=== PATIENT | male | born 1940 | race Caucasian/White ===

== ENCOUNTER → 2020-02-07 12:30 | Outpatient (CLI) | payer MEDICARE, SELFPAY ==
--- NOTE | ~2020-02-07 | US_ITS ---
EXAMINATION: US scrotum doppler DATE: 02/07/2020 13:39 INDICATION: Right testicular swelling TECHNIQUE: Testicular sonogram utilizing grayscale and Doppler COMPARISON: None. FINDINGS: The right testis measures 4.2 x 2.4 x 3.2 cm. The left testis measures 3.5 x 2.2 x 2.9 cm. There is normal vascular flow to both testes. The right epididymis is normal with normal vascular hebert w. The left epididymis is normal in size and contains cysts or spermatoceles measuring up to 8 mm. Th ere is a large right hydrocele. IMPRESSION: 1. Large right hydrocele. Reviewed, dictated and finalized at location A. IMPRESSION: 1. Large right hydrocele.
--- NOTE | ~2020-02-07 | CT_ITS ---
EXAMINATION: CTA chest DATE: 02/07/2020 13:26 INDICATION: Thoracic aortic aneurysm without rupture TECHNIQUE: Computed tomographic angiography (CTA) of the chest was performed without and with 100 mL Omnipque-350 intravenous contrast. Maximum intensity projection 3D-reconstructions of the aorta and o ther arteries were constructed by the technologist on a separate workstation. The dose-length product (DLP) was 1480.22 mGy-cm. Automated exposure control and iterative reconstruction technique were emp loyed. COMPARISON: 08/25/2018 FINDINGS: There is a fusiform aneurysm of the ascending aorta which measures 5.2 x 4.6 cm at the leve l of the main pulmonary artery, not significantly changed since the prior examination. No dissection is identified. The heart size is normal. There are changes of aortic valve surgery. Calcified coronar y artery atherosclerosis is noted. Chronic centrilobular nodules persist without significant change, consistent with infection/inflammation. A mildly enlarged right lower paratracheal lymph node is stab le. A pacemaker of the left chest wall is again noted. There is a 3.8 x 3.0 cm left adrenal mass whic h has replaced a previously stable 10 mm left adrenal nodule. IMPRESSION: 1. 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 2. Interval development of a left adrenal mass replacing a previously stable left adrenal nodule. Fin dings could reflect development of a left adrenal malignancy. Recommend correlation with laboratory s tudies and biopsy. Reviewed, dictated and finalized at location A. IMPRESSION: 1. 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 2. Interval development of a left adrenal mass replacing a previously stable le ft adrenal nodule. Findings could reflect development of a left adrenal maligna ncy. Recommend correlation with laboratory studies and biopsy.
[2020-02-07 12:55] LABS: Estimated Glomerular Filt Rate > 60
== END ==
PROVIDERS: Visit Provider Internal Medicine
DX: I71.2 Thoracic aortic aneurysm, without rupture (principal); N43.3 Hydrocele, unspecified
CPT/HCPCS: 36415; 71275; 76870; 93976; Q9967

== ENCOUNTER 2020-05-22 09:58 | Emergency (ER) | payer MEDICARE, SELFPAY ==
--- NOTE | ~2020-05-22 | XR_ITS ---
EXAMINATION: XR chest 2V EXAM DATE: 05/22/2020 10:17 INDICATION: Shortness of breath. Wheezing. TECHNIQUE: Frontal and lateral projections of the chest obtained and reviewed. Comparison is made to prior examination from 04/27/2019. FINDINGS: Multilead pacemaker. Sternotomy wires. Cardiac valve replacement. The cardiomediastinal si lhouette is prominent but magnified on this AP technique. Left basilar linear opacities consistent wi th subsegmental atelectasis unchanged. The lungs are otherwise clear. There are no pleural effusions . There is no pneumothorax suspected. The bones and soft tissues are unremarkable. IMPRESSION: Chronic left basilar linear opacities likely atelectasis. Reviewed, dictated and finalized at location B. RATION ENGINEERING TECHNOLOGIST
[2020-05-22 10:05] VITALS: BP 150/76; PULSE 70; RESP 20; TEMP 36.6; O2SAT 96
--- NOTE | 2020-05-22 10:09 | ED.GENADULT ---
HPI - General Adult General Chief complaint: Upper Respiratory Infection Stated complaint: Wheezing Time Seen by Provider: 05/22/20 09:59 Source: patient Mode of arrival: ambulatory Limitations: no limitations History of Present Illness HPI narrative: 79 y/o male. PMH includes: See chart. Presents to clinic today with acute complaints of intermittent wheezing, non-productive cough, and nasal congestion since September ; however, worsening in past few weeks . Pt denies fever, chills, chest pain, dyspnea, abdominal pain, N/V/D. He states to have been using OTC Coricidin BP , with subtherapeutic relief. He denies known ill contacts or Covid 19 exposure. He has declined offer for additional Covid 19 testing at this time. He is a non-smoker. No additional acute c/o upon PE. Related Data Home Medications Medication Instructions Recorded Confirmed albuterol sulfate [Ventolin HFA] INHALATION 05/22/20 allopurinol 05/22/20 amlodipine 05/22/20 atorvastatin 05/22/20 carvedilol 05/22/20 finasteride mg 05/22/20 lisinopril-hydrochlorothiazide tablet 05/22/20 potassium chloride [Klor-Con M20] meq PO 05/22/20 sildenafil 05/22/20 warfarin [Jantoven] 05/22/20 Allergies Allergy/AdvReac Type Severity Reaction Status Date / Time Sulfa (Sulfonamide Allergy Verified 01/11/13 10:14 Antibiotics) Review of Systems Review of Systems: Narrative: CONSTITUTIONAL: Denies fever, chills, sweats. EYES: Denies visual changes, redness, discharge. ENT: Positive rhinorrhea, congestion. No sore throat, otalgia. CARDIOVASCULAR: Denies chest pain, palpitations, edema. RESPIRATORY: Positive cough, wheezing. No dyspnea. GASTROINTESTINAL: Denies abdominal pain, nausea, vomiting, diarrhea. GENITOURINARY: Denies dysuria, hematuria, abnormal discharge SKIN: Denies rash or itching. MUSCULOSKELETAL: Denies acute back pain, joint pain, or myalgia. NEUROLOGIC: Denies numbness, or focal weakness. PSYCHIATRIC: Denies anxiety or depression. All systems reviewed & are unremarkable except as noted in HPI and below Exam Narrative: Exam Narrative: GENERAL: This is a well-nourished, well-developed patient, in no apparent distress. HEAD: normocephalic, atraumatic. EYES: PERRL. Sclera clear/white. Vision is grossly intact. EARS: External ears normal, auditory canals clear and without drainage, TMs normal without perforation. Hearing grossly intact. NOSE: External nose normal with no obvious nasal discharge, nares without redness. Positive rhinorrhea. THROAT: Mucous membranes moist, posterior pharynx clear. NECK: Neck supple, non-tender without lymphadenopathy, masses or thyromegaly. CARDIOVASCULAR: Regular rate and rhythm without murmurs, gallops, or rubs. RESPIRATORY: Clear to auscultation. Breath sounds equal bilaterally. No wheezes, rales, or rhonchi. GASTROINTESTINAL: Abdomen soft, non-tender, nondistended. Bowel sounds are active. No hepato-splenomegaly, or palpable masses. No guarding. SKIN: warm, intact with no suspicious lesions or rash, good texture and turgor. NEURO: awake, alert, and oriented to person, place and time. There were no obvious focal neurologic abnormalities. Steady gait EXTREMITIES: Normal range of motion. No edema. No calf tenderness. Negative Homans sign bilaterally. BACK: Nontender without deformity or crepitance. No flank tenderness. Lidia Coma Scale Eye Opening: Spontaneous 4 Reading Coma Scale Motor: Obeys Commands 6 Reading Coma Scale Verbal: Oriented 5 Const: General: no acute distress Orientation/consciousness: patient oriented x3 Course Vital Signs Vital signs: Vital Signs Temperature 36.6 C 05/22/20 10:05 Pulse Rate 70 05/22/20 10:05 Respiratory Rate 20 05/22/20 10:05 Blood Pressure 150/76 H 05/22/20 10:05 Pulse Oximetry 96 05/22/20 10:05 Temperature 36.6 C 05/22/20 10:05 Pulse Rate 70 05/22/20 10:05 Respiratory Rate 20 05/22/20 10:05 Blood Pressure 150/76 H
== END 2020-05-22 10:49 | disposition home or self-care (01) ==
PROVIDERS: Emergency Provider Nurse Practitioner Adult Health; PCP Internal Medicine
DX: J06.9 Acute upper respiratory infection, unspecified (principal); Z95.0 Presence of cardiac pacemaker
CPT/HCPCS: 71046; 99213; G0463

== ENCOUNTER → 2020-06-08 13:16 | Outpatient (CLI) | payer MEDICARE, SELFPAY ==
--- NOTE | ~2020-06-08 | CT_ITS ---
EXAMINATION: CT chest wo con DATE: 06/08/2020 13:39 INDICATION: Linear left basilar lung opacities on chest x-ray TECHNIQUE: Computed tomography (CT) of the chest was performed without intravenous contrast. Automate d exposure control and iterative reconstruction technique were employed. Exam dose: 444.93 mGy-cm to chelsea exam DLP. COMPARISON: 05/22/2022 view chest 02/07/2020 CTA chest FINDINGS: There are multiple linear discoid opacities in the base of the lingula and left lower lobe, consistent with discoid atelectasis and/or scar. Mild atelectasis or scarring at the base of the middle lobe. There are scattered bilateral areas of increased reticular markings, likely chronic. There are calcified left hilar and subcarinal lymph nodes consistent with old pulmonary granulomatous disease. Stable 11 mm cross-section diameter right paratracheal lymph node. Status post sternotomy and aortic valve replacement.. Heart size is within normal range. No pericardial effusion. The ascending aorta measures up to 4.9 cm transverse dimension. The mid thoracic aortic arch measures up to 2.9 cm diameter. The descending thoracic aorta measures approximately 2.8 cm diameter. No pleural effusion or pneumothorax. Normal morphology of the right adrenal gland. Approximately 3 x 4 cm left adrenal mass with attenuation of 40 Hounsfield units, relatively stable i n size compared to 02/07/2020; consider adrenal malignancy or metastasis. There is loss of height and anterior wedging of multiple thoracic and lumbar vertebrae, with undulati ng vertebral endplates, which may be secondary to Scheuermann's disease. Compression fracture at one or more of these vertebrae is not excluded. IMPRESSION: Prominent discoid atelectasis or scarring at the left lung base; mild atelectasis or scar ring at the right lung base Old pulmonary granulomatous disease Status post sternotomy/aortic valve replacement Stable 4.9 cm ascending aortic aneurysm Left-sided pacemaker device 3 x 4 cm left adrenal mass is again noted Reviewed, dictated and finalized at Location A. Reviewed, dictated and finalized at location B. OR QUALITY ASSURANCE ENGINEER IMPRESSION: Prominent discoid atelectasis or scarring at the left lung base; mi ld atelectasis or scarring at the right lung base Old pulmonary granulomatous disease Status post sternotomy/aortic valve replacement Stable 4.9 cm ascending aortic aneurysm Left-sided pacemaker device 3 x 4 cm left adrenal mass is again noted
== END ==
PROVIDERS: PCP Internal Medicine; Visit Provider Internal Medicine
DX: R91.8 Other nonspecific abnormal finding of lung field (principal); I71.4 Abdominal aortic aneurysm, without rupture; Z95.0 Presence of cardiac pacemaker; E27.9 Disorder of adrenal gland, unspecified; D71 Functional disorders of polymorphonuclear neutrophils; Z95.2 Presence of prosthetic heart valve
CPT/HCPCS: 71250

== ENCOUNTER → 2020-10-17 13:10 | Outpatient (CLI) | payer MEDICARE, SELFPAY ==
--- NOTE | ~2020-10-17 | XR_ITS ---
XR chest 2V 10/17/2020 14:19 Indication: Dyspnea Procedure: 2 view chest Comparison: 05/22/2020 Findings: Status post median sternotomy for CABG. Heart size normal. Pacemaker leads are stable. No s ignificant effusion. No pneumothorax. No acute osseous abnormality.. There are bibasilar infiltrates which most likely represents atelectasis or scarring. Impression: 1: Bibasilar infiltrates, most likely atelectasis/scarring. Reviewed, dictated and finalized at location B. Impression: 1: Bibasilar infiltrates, most likely atelectasis/scarring.
== END ==
PROVIDERS: PCP Internal Medicine; Visit Provider Internal Medicine
DX: R06.00 Dyspnea, unspecified (principal); R91.8 Other nonspecific abnormal finding of lung field
CPT/HCPCS: 71046

== ENCOUNTER 2020-11-09 10:11 | Emergency (ER) | payer MEDICARE, SELFPAY ==
[2020-11-09 10:20] VITALS: BP 138/69; PULSE 82; RESP 16; TEMP 36.4; O2SAT 97
--- NOTE | 2020-11-09 10:28 | ED.GENADULT ---
HPI - General Adult General Chief complaint: Eye Problems Stated complaint: eye irritation Time Seen by Provider: 11/09/20 10:28 Source: patient Mode of arrival: ambulatory Limitations: no limitations History of Present Illness HPI narrative: 80-year-old male patient presents to the [facility] with complaints of left eye irritation for the past week. Patient denies any vision changes and states that he recently just got his vision checked about a week or so ago at [facility]. Patient denies any colored drainage but states has had some clear drainage. Denies any sensitivity to the light or itchiness to the eye. Related Data Home Medications Medication Instructions Recorded Confirmed atorvastatin 40 mg PO HS 05/22/20 11/09/20 carvedilol 6.25 mg PO BID 05/22/20 11/09/20 finasteride 5 mg PO DAILY 05/22/20 11/09/20 lisinopril-hydrochlorothiazide 40 tablet PO DAILY 05/22/20 11/09/20 potassium chloride [Klor-Con M20] 20 meq PO DAILY 05/22/20 11/09/20 amlodipine 2.5 mg PO DAILY 11/09/20 11/09/20 aspirin [Adult Low Dose Aspirin] 81 mg PO DAILY 11/09/20 11/09/20 sildenafil [Viagra] 100 mg PO PRN PRN 11/09/20 11/09/20 warfarin 11/09/20 warfarin 11/09/20 Allergies Allergy/AdvReac Type Severity Reaction Status Date / Time Sulfa (Sulfonamide Allergy Rash Verified 11/09/20 10:24 Antibiotics) Review of Systems Review of Systems: Narrative: CONSTITUTIONAL: Denies fever, chills, or sweats. EYES: Denies visual changes, redness, positive clear discharge. Positive left eye irritation ENT: Denies rhinorrhea, congestion, sore throat, or otalgia. CARDIOVASCULAR: Denies chest pain, palpitations, or edema. RESPIRATORY: Denies cough or dyspnea. GASTROINTESTINAL: Denies abdominal pain, nausea, vomiting, or diarrhea. GENITOURINARY: Denies dysuria or hematuria. SKIN: Denies rash or itching. MUSCULOSKELETAL: Denies back pain, joint pain, or myalgia. NEUROLOGIC: Denies headache, numbness, or weakness. PSYCHIATRIC: Denies anxiety or depression. [facility] Past Medical History Medical History (Updated 04/23/21 @ 10:54 by JAN Cee) Hypercholesteremia Hypertension Pacemaker Surgical History Surgical History (Updated 11/09/20 @ 10:30 by JAN Cee) Aortic valve replaced Comments At the time of my signature I agree with nursing past medical history, surgical, social, and family history. There is no relevant family history pertinent to the presenting complaint. Exam Narrative: Exam Narrative: GENERAL: Well-appearing, well-nourished, and in no acute distress. HEAD: Normocephalic, atraumatic. EYES: PERRLA and EOM intact without limitation or complaint of pain, no periorbital soft tissue swelling ,no erythema, warmth or tenderness noted, no obvious deformity. No crusting or swelling.clear tearing or draining.No photophobia. No nystagmus No FB or lesion on lid eversion. Patient does appear to have a stye present to the left lower lid towards the middle. Corneas grossly clear, no obvious FB or hyphens/hypopyon. Erythemic injection to sclera of left eye. Lids and lashes clear. ENT: Nares clear, no rhinorrhea or epistaxis. Mucous membranes moist. NECK: Supple. No lymphadenopathy CHEST: Clear to auscultation. No respiratory distress. HEART: Regular rate and rhythm. No murmur heard. Normal peripheral pulses. ABDOMEN: Soft, nontender, nondistended, normal active bowel sounds. EXTREMITIES: Normal range of motion. No edema. SKIN: Warm, dry, no rash. NEURO: No focal deficits. Alert and oriented x3. Course Vital Signs Vital signs: Vital Signs Temperature 36.4 C 11/09/20 10:20 Pulse Rate 82 11/09/20 10:20 Respiratory Rate 16 11/09/20 10:20 Blood Pressure 138/69 11/09/20 10:20 Pulse Oximetry 97 11/09/20 10:20 Temperature 36.4 C 11/09/20 10:20 Pulse Rate 82 11/09/20 10:20 Respiratory Rate 16 11/09/20 10:20 Blood Pressure 138/69 11/09/20 10:20 Pulse Oximetry 97 11/09/20 10:20 Vital sign
== END 2020-11-09 10:58 | disposition home or self-care (01) ==
PROVIDERS: Emergency Provider Nurse Practitioner Family
DX: H00.015 Hordeolum externum left lower eyelid (principal); E78.00 Pure hypercholesterolemia, unspecified; I10 Essential (primary) hypertension; Z95.0 Presence of cardiac pacemaker; Z95.2 Presence of prosthetic heart valve
CPT/HCPCS: 99213; G0463

== ENCOUNTER → 2021-02-11 14:04 | Outpatient (CLI) | payer MEDICARE, SELFPAY ==
--- NOTE | ~2021-02-11 | CT_ITS ---
EXAMINATION: CT diagnostic chest wo con EXAM DATE: 02/11/2021 14:35 INDICATION: Solitary pulmonary nodule. TECHNIQUE: Spiral CT of the chest without contrast. Axial, coronal and sagittal images of the chest were reviewed. Coronal maximum intensity pixel images of chest reviewed. The dose-length product ( DLP) for this examination was 457.61 mGy-cm. The exposure was tailored according to patient size (au to mA exposure control), and iterative reconstruction (ASIR) was used as additional dose reduction te chnique. Comparison is made to prior examination from 06/08/2020. FINDINGS: Left adrenal mass is enlarging, now measures 4.1 x 3.3 cm (previously 3.8 x 3.0). The ascen ding aorta measures 5.4 cm, appears not significantly changed. There is aortic valve replacement. Pac emaker/AICD device. Chronic left basilar atelectasis or scarring. Moderate chronic hyperinflation. M ild bronchiectasis. Mild emphysema. Bilateral upper lobe predominant punctate tree-in-bud pattern opa cities unchanged, likely sequela from prior infection. No suspicious pulmonary nodules. There are no pleural or pericardial effusions. Tracheobronchial tr ee is patent. Right lower paratracheal lymph node measuring 1.6 x 1.1 cm unchanged, probably reacti ve. Some other lymph nodes demonstrating calcification from prior granulomatous process. There is no pneumothorax. Heart normal in size. There are sternotomy wires, and cardiac/coronary surgical ch anges. Correlate with prior history. Moderate thoracic disc disease. Some diffuse loss of mid and lo wer thoracic vertebral body heights. IMPRESSION: 1. Enlarging left adrenal mass, primary adrenal benign or malignant tumor probably more likely than metastatic lesion. This now measures over 4 cm; consider surgical resection. 2. Chronic post infectious residua. 3. Moderate hyperinflation, mild emphysema. 4. Ascending aortic 5.4 cm aneurysm, stable. 5. Mildly enlarged but stable right lower paratracheal lymph node, probably reactive. Reviewed, dictated and finalized at location B. IMPRESSION: 1. Enlarging left adrenal mass, primary adrenal benign or malignant tumor prob ably more likely than metastatic lesion. This now measures over 4 cm; consider surgical resection. 2. Chronic post infectious residua. 3. Moderate hyperinflation, mild emphysema. 4. Ascending aortic 5.4 cm aneurysm, stable. 5. Mildly enlarged but stable right lower paratracheal lymph node, probably re active.
--- NOTE | ~2021-02-11 | CT_ITS ---
EXAMINATION: CT cervical spine wo [facility] EXAM DATE: 02/11/2021 14:35 INDICATION: Anesthesia of the skin, numbness. TECHNIQUE: Spiral CT of the cervical spine was performed without contrast. Axial images were reviewe d. Coronal and sagittal reformatted images cervical spine were also reviewed. The dose-length produc t (DLP) for this examination was 325.47 mGy-cm. The exposure was tailored according to patient size (auto mA exposure control), and iterative reconstruction (ASIR) was used as additional dose reduction technique. There is no prior study for comparison. FINDINGS: There is moderate to severe disc disease C6-7, moderate at the other cervical levels. The odontoid process is intact. The lateral masses of C1 line up with C2. There are no acute fractures i dentified. Prevertebral soft tissue and pre-dens space are within normal limits. Triple lead pacemake r/AICD device. Sternotomy wires. Paraspinal soft tissue is unremarkable. Level by level evaluation: C2-C3: Disc does not extend beyond the endplate margin. Uncovertebral joint arthropathy: None. Facet joint arthropathy: Mild. Neural foraminal stenosis: No stenosis. Central canal stenosis: No stenosis. C3-C4: There is a mild diffuse disc bulge asymmetric to the right Uncovertebral joint arthropathy: Mild to moderate right. Facet joint arthropathy: Moderate right, mild to moderate left. Neural foraminal stenosis: Moderate right. Central canal stenosis: Minimal. C4-C5: There is a mild diffuse disc bulge. Uncovertebral joint arthropathy: Mild to moderate left, mild right. Facet joint arthropathy: Severe bilateral. Neural foraminal stenosis: Severe left, moderate to severe right. Central canal stenosis: Mild. C5-C6: There is a mild diffuse disc bulge. Uncovertebral joint arthropathy: Moderate bilateral. Facet joint arthropathy: Moderate bilateral. Neural foraminal stenosis: Moderate bilateral. Central canal stenosis: Mild. C6-C7: There is a moderate diffuse disc bulge. Uncovertebral joint arthropathy: Moderate bilateral. Facet joint arthropathy: Moderate bilateral. Neural foraminal stenosis: Moderate bilateral. Central canal stenosis: Mild. C7-T1: There is a mild diffuse disc bulge. Uncovertebral joint arthropathy: Mild. Facet joint arthropathy: Moderate to severe bilateral. Neural foraminal stenosis: No stenosis. Central canal stenosis: No stenosis. IMPRESSION: 1. Significant multilevel neural foraminal stenosis as detailed above. Reviewed, dictated and finalized at location B.
== END ==
PROVIDERS: PCP Internal Medicine; Visit Provider Internal Medicine
DX: R91.1 Solitary pulmonary nodule (principal); R20.0 Anesthesia of skin; R91.8 Other nonspecific abnormal finding of lung field; I71.4 Abdominal aortic aneurysm, without rupture
CPT/HCPCS: 71250; 72125

== ENCOUNTER → 2021-05-07 13:14 | Outpatient (CLI) | payer MEDICARE, SELFPAY ==
--- NOTE | ~2021-05-07 | CT_ITS ---
EXAMINATION:CT diagnostic chest wo con DATE: 05/07/2021 13:44 INDICATION: Thoracic aortic aneurysm. TECHNIQUE: Computed tomography (CT) of the chest was performed without intravenous contrast. Automate d exposure control and iterative reconstruction technique were employed. The dose-length product (DLP ) was 462.71 mGy-cm. COMPARISON: Chest CT 02/11/2021, 02/07/2020 FINDINGS: There are scattered areas of mild atelectasis in the lungs. There is bronchiectasis in the inferior lungs, worst in left lower lobe. A calcified left lung nodule and calcified left hilar and m ediastinal lymph nodes are consistent with old granulomatous disease. No pleural effusion. The heart size is normal. There are coronary artery calcifications. There are changes of aortic valve replaceme nt. There is a 5.4 cm fusiform aneurysm of ascending aorta. The aortic isthmus measures 2.8 cm. The d escending aorta measures 2.9 cm. There is mild elevation of left hemidiaphragm. There is a 4.1 cm mas s in left adrenal gland measuring soft tissue attenuation. There is thoracic kyphosis with chronic an terior wedging of multiple vertebral bodies. There is moderate thoracic spondylosis and severe cervic al spondylosis. IMPRESSION: 1. 5.4 cm fusiform aneurysm of ascending aorta, stable from 02/11/2021. 2. 4.1 cm mass in left adrenal gland, stable from 02/07/2020 and increased from 1.5 cm on 08/25/2018, mo st likely a benign mass such as hematoma or adenoma. Reviewed, dictated and finalized at location A. IMPRESSION: 1. 5.4 cm fusiform aneurysm of ascending aorta, stable from 02/11/2021. 2. 4.1 cm mass in left adrenal gland, stable from 02/07/2020 and increased from 1.5 cm on 08/25/2018, most likely a benign mass such as hematoma or adenoma.
--- NOTE | ~2021-05-07 | XR_ITS ---
EXAMINATION: XR knee LT 3V DATE: 05/07/2021 14:13 INDICATION: Left knee pain. TECHNIQUE: 3 views of left knee were obtained. COMPARISON: Left tibia and fibula radiographs 06/10/2011 FINDINGS: Bone alignment is normal. No fracture. There is mild osteoarthritis of patellofemoral julia rtment. No knee joint effusion. IMPRESSION: 1. Mild left knee osteoarthritis. Reviewed, dictated and finalized at location A.
== END ==
PROVIDERS: PCP Internal Medicine; Visit Provider Internal Medicine
DX: I71.2 Thoracic aortic aneurysm, without rupture (principal); D35.02 Benign neoplasm of left adrenal gland; M17.12 Unilateral primary osteoarthritis, left knee
CPT/HCPCS: 71250; 73562

== ENCOUNTER → 2021-07-17 10:34 | Outpatient (CLI) | payer MEDICARE, SELFPAY ==
--- NOTE | ~2021-07-17 | XR_ITS ---
EXAMINATION: XR wrist RT min 3V DATE: 07/17/2021 10:47 INDICATION: Primary osteoarthritis, right wrist. TECHNIQUE: 4 views of right wrist were obtained. COMPARISON: None. FINDINGS: Bone alignment is normal. No fracture. There is mild osteoarthritis of distal radioulnar luann int. There is severe osteoarthritis at radiolunate joint. There is remodeling of distal ulna, consist ent with ulnolunate abutment syndrome. There is mild osteoarthritis of triscaphe joint and first carp ometacarpal joint. IMPRESSION: 1. Polyarticular osteoarthritis. Reviewed, dictated and finalized at location B. MINATOR
== END ==
PROVIDERS: PCP Internal Medicine; Visit Provider Plastic Surgery
DX: M19.031 Primary osteoarthritis, right wrist (principal); M18.11 Unilateral primary osteoarthritis of first carpometacarpal joint, right hand
CPT/HCPCS: 73110

== ENCOUNTER 2021-08-08 00:33 | Day surgery (SDC) | payer MEDICARE, SELFPAY ==
[2021-08-01 12:54] VITALS: BMI 32.0
--- NOTE | 2021-08-01 13:13 | PC.NURSE ---
Report to the Outpatient Waiting Room, entrance under the green pavilion located off [facility], at time ___1100____ on date __08/08/21 . OR Time: __1200 . - You and your visitor will be asked a series of questions to screen for COVID 19 for your protection. - A mask is required within the hospital. - Only one visitor is allowed at this time. Patient visitors will be guided where to wait when not with patient. Preoperative COVID Testing Requirements: No COVID Test needed if: (proof is required; if not received patient will have Rapid Test prior to entry) - Patient has received COVID Vaccine at least 14 days prior to procedure date or - Patient has positive COVID test result within last 90 days of surgery date. COVID Test needed if above criteria is not met If not COVID vaccinated a COVID test must be conducted within 72 hours of surgery and patient is asked to isolate self from time of testing until procedure. You will go to the [facility] for your COVID testing. The [facility] site is located at the corner of [address] from [facility]. You will only be called if COVID results are positive and your surgeon may reschedule your elective surgery date. -MAY HAVE LIGHT BREAKFAST - Infants may have breast milk until 4 hours before surgery, infant formula 6 hours prior to surgery. - Children will be allowed to drink immediately following surgery. If applicable, please bring a bottle or sippy cup to assist with drinking. Juice, water, soda, and popsicles are readily available. For infants on formula, please bring formula the day of surgery. Pacifiers are allowed. Take the following medications with a SIP of water the morning of surgery: ____REGULAR HOME MEDS Medications to discontinue per physician N/A Date to take last dose Please no make-up, nail upper sorbian, hairspray, perfume, deodorant, or body powder the day of surgery. No jewelry (including any body piercings) or valuables the day of surgery, leave them at home. Please take a shower or bath the night before, or the morning of, surgery with an antibacterial soap. Wear comfortable, loose fitting clothing. Children are encouraged to wear pajamas. - Jewelry must be removed prior to entering the operating room. Rings and piercings that are not removed may be cut off. - The hospital will not accept responsibility for valuables. - Please leave all valuables, including medications, at home the day of surgery. - NO public transportation without another adult. - We recommend that an adult stay with you for 24 hours following discharge. - We also recommend that you do not drive, make important decision, drink alcoholic beverages, or take any drugs that were not prescribed by your health care provider for at least 24 hours after your discharge time. For Pediatric surgeries, we recommend two adults accompany the child home (only one inside the building at this time). Follow any additional instructions given to you from your surgeon. Telephone instructions given to ____PT and asked if any additional questions and then verbalized understanding. Patient advised to call surgeon office or pre surgery nurse liaison [phone] if any additional questions.
--- NOTE | 2021-08-08 12:55 | WPDHPUPDATE1 ---
History and Physical Update Update Date/Time: 08/08/21 12:55 History and Physical has been reviewed, including an updated exam of the patient. There are NO changes in the patient's condition. Risks, benefits, and alternatives have been discussed and questions answered. Patient agrees to proceed with procedure.
[2021-08-08 14:50] VITALS: BP 153/71; PULSE 74; RESP 20; TEMP 36.9; O2SAT 97
[2021-08-08 15:17] VITALS: BP 181/81; PULSE 75; RESP 20; O2SAT 96
[2021-08-08 15:27] VITALS: BP 154/74; PULSE 72; RESP 20; O2SAT 94
[2021-08-08 15:37] VITALS: BP 161/77; PULSE 76; RESP 20; O2SAT 94
[2021-08-08 15:44] VITALS: BP 150/80; PULSE 73; RESP 16; O2SAT 96
--- NOTE | 2021-08-08 16:14 | W.PM.PROC2 ---
Procedure Note - Detailed Date of Procedure 08/08/21 Pre-op Diagnosis right carpal tunnel syndrome Post-op Diagnosis same Procedure Performed Right open carpal tunnel release Surgeon Reji Farley MD Anesthesia local Description of Procedure The right volar wrist was marked over the carpal tunnel as the patient waited in holding area he was taken to the operating room and placed supine on the operating table. Time-out was held and confirmed. The site was prepped and draped in usual fashion. Site was locally infiltrated with 1% lidocaine epinephrine. No tourniquet was utilized. Skin incision was made as marked. Dissection was carried bluntly through the subcutaneous tissue to the palmar aponeurosis. This and the transverse retinaculum incised 15 blade. A 3 point retraction the ligament was divided distally and proximally for complete release. No unusual anatomy was noted. Skin was closed with interrupted 4-0 nylon suture. The usual bandage was applied and is discharged from the operating room stable condition. Estimated Blood Loss 3 Tourniquet Time 0 Drains No Packing No Pathology none sent Complications No immediate complications Condition stable Disposition same day
== END 2021-08-08 16:49 | disposition home or self-care (01) ==
PROVIDERS: PCP Internal Medicine; Visit Provider Plastic Surgery
PROC: (CPT 64721; principal; 2021-08-08 15:30)
DX: G56.01 Carpal tunnel syndrome, right upper limb (principal); Z95.4 Presence of other heart-valve replacement; Z95.0 Presence of cardiac pacemaker; Z79.51 Long term (current) use of inhaled steroids; Z79.82 Long term (current) use of aspirin; Z79.01 Long term (current) use of anticoagulants
CPT/HCPCS: 64721

== ENCOUNTER → 2022-10-28 12:26 | Outpatient (CLI) | payer MEDICARE, SELFPAY ==
--- NOTE | ~2022-10-28 | XR_ITS ---
XR lumbar spine 2-3V 10/28/2022 12:58 Indication: Low back pain Procedure: 3 views lumbar spine Comparison: No prior studies for comparison. Findings: There is disc narrowing at all lumbar levels. There are colonic wedge compression deformiti es of T10-T12. There is degenerative grade 1 spondylolisthesis at L4-5. Is moderate facet hypertrophy at L4-5 and L5-S1. There is atherosclerosis of the aorta. Impression: 1: Severe lumbar spondylosis Reviewed, dictated and finalized at location L. Impression: 1: Severe lumbar spondylosis
== END ==
PROVIDERS: PCP Anesthesiology Pain Medicine; Visit Provider Anesthesiology Pain Medicine
DX: M47.26 Other spondylosis with radiculopathy, lumbar region (principal)
CPT/HCPCS: 72100

== ENCOUNTER → 2022-12-09 08:20 | Outpatient (CLI) | payer MEDICARE, SELFPAY ==
--- NOTE | ~2022-12-09 | CT_ITS ---
EXAMINATION: CT lumbar spine wo con DATE: 12/09/2022 08:40 INDICATION: Lumbar radiculopathy. TECHNIQUE: Computed tomography (CT) of the lumbar spine was performed without intravenous contrast. A utomated exposure control and iterative reconstruction technique were employed. The dose-length produ ct was 958.90 mGy-cm. 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 Th ere is 7 degrees levocurvature of lumbar spine. There is 3 mm anterolisthesis of L4 on L5. There is m ild chronic anterior wedging of T12-L2 vertebral bodies. There is moderately decreased disc height at L1-L2, L3-L4, and L4-L5 and mildly decreased disc height at L5-S1. The following disc levels are spe cifically discussed: L1-L2: The disc is bulging. There is mild bilateral facet joint osteoarthritis. There is mild right n eural foraminal stenosis. There is mild central canal stenosis. L2-L3: The disc is bulging. There is mild bilateral facet joint osteoarthritis. There is mild bilater al neural foraminal stenosis. There is mild central canal stenosis. L3-L4: The disc is bulging. There is mild bilateral facet joint osteoarthritis. There is mild bilater al neural foraminal stenosis. There is mild central canal stenosis. L4-L5: The disc is bulging. There is severe bilateral facet joint osteoarthritis. There is mild bilat eral neural foraminal stenosis. There is moderate central canal stenosis. L5-S1: The disc is bulging. There is severe bilateral facet joint osteoarthritis. There is mild bilat eral neural foraminal stenosis. There is mild central canal stenosis. IMPRESSION: 1. Moderate lumbar spondylosis. Reviewed, dictated and finalized at location A.
== END ==
PROVIDERS: PCP Internal Medicine; Visit Provider Nurse Practitioner Family
DX: M47.26 Other spondylosis with radiculopathy, lumbar region (principal)
CPT/HCPCS: 72131

== ENCOUNTER 2023-02-10 06:37 | Outpatient (CLI) | payer MEDICARE, SELFPAY ==
[2023-02-10 07:11] LABS: INR 1.1
== END 2023-02-10 06:38 | disposition home or self-care (01) ==
LOC: ANHLAB 06:39
PROVIDERS: PCP Family Medicine; Visit Provider Pain Medicine Pain Medicine
DX: Z79.01 Long term (current) use of anticoagulants (principal)
CPT/HCPCS: 36415; 85610

== ENCOUNTER → 2023-03-19 12:32 | Outpatient (CLI) | payer MEDICARE, SELFPAY ==
--- NOTE | ~2023-03-19 | XR_ITS ---
EXAMINATION: XR hip LT min 2V INDICATION: Left hip pain TECHNIQUE: Two views of the left hip are obtained. COMPARISON: None available FINDINGS: There is severe joint space narrowing throughout the left hip with complete loss of joint s pace at the superior aspect of the hip. No fracture is identified. There is flattening of the femoral head superolaterally. There are multiple phleboliths of the pelvis. At least moderate lumbar spondyl osis is noted. IMPRESSION: 1. Severe left hip osteoarthritis. Reviewed, dictated and finalized at location L.
== END ==
PROVIDERS: PCP Family Medicine; Visit Provider Nurse Practitioner Family
DX: M17.12 Unilateral primary osteoarthritis, left knee (principal)
CPT/HCPCS: 73502

== ENCOUNTER 2023-11-26 10:27 | Outpatient (CLI) | payer MEDICARE, SELFPAY ==
--- NOTE | ~2023-11-26 | XR_ITS ---
AP lateral views of the left hip Clinical history: Pain Findings: No acute fracture or dislocation is seen. There is severe left hip joint osteoarthritis. Th ere is marked joint space narrowing, reactive sclerosis, and remodeling of the articular surface of t he femoral head.. Soft tissues are unremarkable. Impression: Severe osteoarthritis of the left hip joint, as detailed above. Reviewed, dictated and finalized at location M. Impression: Severe osteoarthritis of the left hip joint, as detailed above.
--- NOTE | ~2023-11-26 | XR_ITS ---
Left Knee Technique: AP, lateral, and sunrise views were obtained. Clinical History: Pain Findings: No fracture or dislocation is seen. Osseous alignment is anatomic. Minimal patellar spurrin g noted. Soft tissues are unremarkable. No joint effusion is seen. Impression: Minimal patellar spurring. Reviewed, dictated and finalized at location . Impression: Minimal patellar spurring.
--- NOTE | ~2023-11-26 | XR_ITS ---
Right Knee Technique: AP, lateral, and sunrise views were obtained. Clinical History: Pain Findings: No fracture or dislocation is seen. Osseous alignment is anatomic. Mild tricompartmental de generative change present. Soft tissues are unremarkable. No joint effusion is seen. Impression: Mild tricompartmental degenerative change. Reviewed, dictated and finalized at [facility]. Impression: Mild tricompartmental degenerative change.
== END 2023-11-26 10:28 ==
PROVIDERS: PCP Nurse Practitioner; Visit Provider Nurse Practitioner
DX: M25.562 Pain in left knee (principal); M16.12 Unilateral primary osteoarthritis, left hip; M17.11 Unilateral primary osteoarthritis, right knee
CPT/HCPCS: 73502; 73562